=== PATIENT | male | born 1960 | race Two or more races ===

== ENCOUNTER 2022-05-17 19:08 | Emergency (ER) | payer MEDICARE, OTHER ==
[~2022-05-17] VITALS: Ht 177.8 cm; Wt 68.0 kg
[2022-05-17] MEDS ORDERED: IV NS 0.9% 1,000 ML BAG IV ONE (20:00)
--- NOTE | 2022-05-17 20:00 | NUR ---
PT REFUSED IV AND BLOOD DRAW. MD ALICEA
--- NOTE | 2022-05-17 21:46 | NUR ---
Patient discharged to home in stable condition. Written and verbal after care instructions given. Patient verbalizes understanding of instruction. pT ambulatory with a steady gait
[2022-05-17 21:53] VITALS: BP 142/89
== END 2022-05-17 21:46 | disposition home or self-care (01) ==
LOC: ER 19:10
DX: M54.9 Dorsalgia, unspecified (principal); I10 Essential (primary) hypertension; V89.2XXA Person injured in unspecified motor-vehicle accident, traffic, initial encounter; Y93.89 Activity, other specified; Y92.89 Other specified places as the place of occurrence of the external cause; Y99.8 Other external cause status
CPT/HCPCS: 71045-TC; J7030